=== PATIENT | male | born 1950 | race Caucasian/White ===

== ENCOUNTER → 2018-07-23 09:39 | Outpatient (CLI) | payer MEDICARE, OTHER, SELFPAY ==
[2018-07-24 14:16] LABS: Albumin 3.6 g/dL (2.9-4.4); Alpha-1-Globulin 0.2 g/dL (0.0-0.4); Alpha-2-Globulin 0.8 g/dL (0.4-1.0); Gamma Globulin 0.9 g/dL (0.4-1.8); Protein, Total 6.5 g/dL (6.0-8.5)
== END ==
PROVIDERS: PCP Family Medicine; Visit Provider Specialist
DX: G62.9 Polyneuropathy, unspecified (principal); M48.061 Spinal stenosis, lumbar region without neurogenic claudication; Z92.21 Personal history of antineoplastic chemotherapy
CPT/HCPCS: 36415; 84155; 84165

== ENCOUNTER → 2019-08-28 15:31 | Outpatient (CLI) | payer MEDICARE, OTHER, SELFPAY | PROVIDERS: Visit Provider Podiatrist | DX: B35.1 Tinea unguium (principal) | CPT/HCPCS: 87102; 87206; 87220 ==

== ENCOUNTER → 2019-10-25 08:54 | Outpatient (CLI) | payer MEDICARE, OTHER, SELFPAY ==
--- NOTE | 2019-10-25 08:57 | US_ITS ---
APPROVED REPORT Exam Type: Lower Extremity Segmental Pressures Environmental Advisor: Florencia Ocampo RVT Indications Claudication: Bilaterally Rest Pain: Bilaterally Numbness/Tingling SKIN CHANGES, NEUROPATHY IRENE LE'S Pressures/Indices Right Indices Left Indices Brachial 142.00 mmHg Brachial 148.00 mmHg Low Thigh 149.00 mmHg 1.01 Low Thigh 150.00 mmHg 1.01 Calf 178.00 mmHg 1.20 Calf 166.00 mmHg 1.12 Ankle(PT) 176.00 mmHg 1.19 Ankle(PT) 177.00 mmHg 1.20 Ankle(DP) 141.00 mmHg 0.95 Ankle(DP) 171.00 mmHg 1.16 Digit 117.00 mmHg 0.79 Digit 123.00 mmHg 0.83 Findings RT PATEL:1.19 LT PATEL:1.20 RT TBI:0.79 LT TBI:0.83 NORMAL PULSES IRENE. NORMAL WAVEFORMS IRENE Conclusion No evidence significant arterial disease throughout the right and left lower extremities as evidenced by normal resting PVR waveforms and normal resting indices. Electronically signed by : Gurpreet Tan MD 10/30/2019 18:40:15
== END ==
PROVIDERS: PCP Family Medicine; Visit Provider Podiatrist
DX: R09.89 Other specified symptoms and signs involving the circulatory and respiratory systems (principal)
CPT/HCPCS: 93923

== ENCOUNTER 2021-02-23 14:00 | Outpatient (RCR) | payer MEDICARE, OTHER, SELFPAY | END 2021-02-23 14:05 | disposition home or self-care (01) | LOC: PT 14:00 | PROVIDERS: PCP Family Medicine; Visit Provider Orthopaedic Surgery | DX: M17.11 Unilateral primary osteoarthritis, right knee (principal); Z47.89 Encounter for other orthopedic aftercare | CPT/HCPCS: 97010; 97014; 97016; 97110; 97140; 97163; 97164; 97530; G0283 ==

== ENCOUNTER → 2021-07-08 11:45 | Outpatient (CLI) | payer MEDICARE, OTHER, SELFPAY ==
--- NOTE | 2021-07-08 11:50 | XR_ITS ---
PROCEDURE: XR FOOT WT BEARING RT 3V CLINICAL INDICATION: Right foot pain, r/o stress fracure, osteophyte COMPARISON: No exams were available for comparison FINDINGS: No acute fractures evident. There is prominent cortical thickening involving the shaft of the 4th metatarsal which could be related underlying stress reaction. This is best detected on the oblique image. The joint spaces are well-preserved. No significant degenerative/arthritic changes. No erosive changes evident. Other findings:None. IMPRESSION: Cortical thickening of the 4th metatarsal which may be due to underlying stress reaction Dictated by: Gurpreet Tan MD 07/08/2021 15:33 Gurpreet Tan MD in [place] 07/08/2021 15:33
== END ==
PROVIDERS: PCP Family Medicine; Visit Provider Specialist
DX: G62.9 Polyneuropathy, unspecified (principal); G89.29 Other chronic pain; M79.671 Pain in right foot
CPT/HCPCS: 73630

== ENCOUNTER → 2021-07-15 07:57 | Outpatient (CLI) | payer MEDICARE, OTHER, SELFPAY ==
--- NOTE | 2021-07-15 07:57 | MR_ITS ---
PROCEDURE: MR FOOT RT WO CON CLINICAL INDICATION: right foot pain, severe COMPARISON: CR XR FOOT WT BEARING RT 3V from 07/08/2021 TECHNIQUE: Routine multiplanar multi echo sequences are performed without gadolinium enhancement. FINDINGS: Bones: No marrow edema. No acute fracture, dislocation, or bony destructive process. No evidence of stress fracture. Ligaments and tendons: There is a small amount fluid within the flexor hallucis longus tendon. No tendon tears. The ATFL, PT FL, tibiofibular ligaments, deltoid ligament, calcaneofibular ligament has an unremarkable appearance. Sinus tarsi has an unremarkable appearance. Plantar fascia appears intact. Small cystic areas present within the flexor hallucis brevis muscle measuring 8 mm along the plantar aspect of the 1st metatarsal distally. There is a small area of isointensity centrally within the cyst. IMPRESSION: 1. No evidence of stress fracture. 2. Tenosynovitis of the flexor digitorum longus tendon along the plantar aspect of the foot. 3. Small complex cystic lesion within the flexor hallucis brevis muscle. Dictated by: Gurpreet Tan MD 07/15/2021 16:59 Gurpreet Tan MD in [place] 07/15/2021 16:59
== END ==
PROVIDERS: PCP Family Medicine; Visit Provider Specialist
DX: G62.9 Polyneuropathy, unspecified (principal); G89.29 Other chronic pain; M79.671 Pain in right foot
CPT/HCPCS: 73718

== ENCOUNTER → 2021-07-22 09:30 | Outpatient (POV) | payer MEDICARE, OTHER, SELFPAY ==
[2021-07-22 09:52] VITALS: BP 177/81; PULSE 71; RESP 18; O2SAT 99; BMI 31.9
--- NOTE | 2021-07-22 12:31 | HMH.PMCON ---
Assessment and Plan (1) Idiopathic neuropathy Status: Chronic Category: Medical Code(s): G60.9 - Hereditary and idiopathic neuropathy, unspecified (2) Bilateral foot pain Status: Chronic Category: Medical Code(s): M79.671 - Pain in right foot; M79.672 - Pain in left foot - Assessment and plan all Dx Assessment and Plan for all problems:: Patient does have a history of herniated disks and has not had evaluation of his lumbar spine recently. His last MRI was prior to 2000. The patient is having foot pain with numbness and cold sensation. He has been told his pain may be directly related to his cancer treatment. He has also been told that it may be due to his lumbar spine. He is also having paresthesia into his bilateral thighs. He has tried to Loxitane which caused confusion. He is taking gabapentin. He was unable to tolerate an increased dose of gabapentin. We discussed trying Lyrica, however, the patient is very reluctant to change the medication. We have discussed undergoing an MRI of his lumbar spine to rule out any pathology with his spine. He will follow up with us after his MRI for reevaluation of symptoms. He has tried physical therapy and continues with home stretching. He would like to continue with his gabapentin. Patient has been instructed to contact the clinic with any concerns before the next appointment. Dr. Sierra has reviewed this note and agrees with this plan of care. This note was dictated using voice recognition software and make contain errors or omissions. HPI - Data of Consult Patient: new to practice Consult date: 07/22/21 Requesting Physician: Elizabet Hammond APRN Primary Care Provider: Referral Provider, MD - Consult Narrative Reason for consult: Bilateral foot pain, bilateral thigh numbness History of present illness: Mr. Phelps is a 71 year old male who presents today for consultation for foot pain and bilateral thigh numbness. Patient was referred to us by Dr. Bourne. Patient says he has had this pain for longer than 4 years. He was diagnosed with idiopathic neuropathy per Dr. Bourne. Patient was started on gabapentin 300 mg 1 tablet p.o. twice daily. Patient says that he is able to tolerate the medication at bedtime, however, is unable to tolerate the medication throughout the day. He has gotten some improvement with the medication. He was also started on Cymbalta which she reports to have caused him to become confused. Patient says his pain is much worse in the right foot in comparison to his left foot pain. He reports to be having pressure to the right foot with drawing of his toes. He has tried different types of shoes which did seem to help somewhat. He is not diabetic. Patient did have a right knee replacement in November 2020. At that time he was wearing compressive's stockings that were to the thigh area. He did wear these daily. He began to notice some numbness to his bilateral thigh area since then. He also has burning sensation into bilateral thighs. He is not having any back pain at this time, however, has reported in the past to have had herniated disks. When he received a neurosurgical consult at that time, he was told that he was too young to undergo surgical intervention. Patient does report to be having numbness and cold sensation to his bilateral feet. He does have a history of bladder cancer with 3 rounds of treatment in 2000. He was told that his neuropathy is most likely related to his cancer treatment which may have caused nerve damage. Patient says he has not had any recent imaging of his lumbar spine. Patient's tried physical therapy for greater than 6 weeks and continues with home stretching. He has been advised by physical therapy that his pain is likely contribute to his herniated disc from his back. CC: Elizabet Hammond APRN [facility] History I have reviewed the patient's past medical history: Yes Medical History: Reports:: Cancer, Hypertension *[place]
== END ==
PROVIDERS: Visit Provider Clinical Nurse Specialist Family Health
DX: G60.9 Hereditary and idiopathic neuropathy, unspecified (principal); M79.671 Pain in right foot; M79.672 Pain in left foot
CPT/HCPCS: 99202; G0463

== ENCOUNTER → 2021-07-28 16:34 | Outpatient (CLI) | payer MEDICARE, OTHER, SELFPAY ==
--- NOTE | 2021-07-28 | MR_ITS ---
PROCEDURE: MR LUMBAR SPINE WO CON CLINICAL INDICATION: BILATERAL FOOT PAIN COMPARISON: MR SENIOR ANALYTIC CONSULTANT/O MRI-L-SPINE W/O from 04/12/2013 MR SENIOR ANALYTIC CONSULTANT/O MRI-L-SPINE W/O from 07/10/2017 TECHNIQUE: Standard multiplanar multiecho sequences are performed without contrast. 3-D MIP and myelographic images are also rendered and reviewed FINDINGS: There is normal alignment. The spinal cord ends at the T12-L1 level. T11-T12 and T12-L1: Mild degenerative disc disease with minimal bulging disc and facet and ligamentum hypertrophy L1-L2: Degenerative disc disease with bulging disc and small central disc herniation with inferior extrusion causing mild impingement upon the anterior aspect of the cauda equina. There is facet and ligamentum hypertrophy with bilateral lateral recess narrowing. Small anterior osteophytes are present in there is a lipoma within the L1 vertebral body. The herniated disc has developed since the previous exam. There is canal stenosis. L2-L3: Degenerative disc disease with bulging disc and endplate osteophytes with facet and ligamentum hypertrophy with bilateral lateral recess narrowing not significantly changed. L3-L4: Degenerative disc disease with bulging disc with endplate osteophytes with facet and ligamentum hypertrophy with borderline canal stenosis bilateral lateral recess and bilateral foraminal narrowing. Not significantly changed L4-5: Mild concentric bulging disc with bilateral facet and ligamentum hypertrophy with mild bilateral foraminal narrowing overall not significantly changed there is narrowing of the canal at 11 mm. L5-S1: Degenerative disc disease with endplate osteophytes and bulging disc with small central disc protrusion the as well as a small broad-based left paracentral disc osteophyte complex. Facet and ligamentum hypertrophy is present with moderate to severe bilateral foraminal narrowing. The degenerative disc disease has progressed at this level compared to the previous exam. Bilateral pars defects are noted. Type 1 endplate changes There are bilateral parapelvic renal cysts IMPRESSION: Multilevel lumbar spondylosis with degenerative disc disease, bulging discs, facet ligamentum hypertrophy. Please see above for detailed description at each level. There is a small central disc herniation with inferior extrusion at L1-L2 which has developed since the previous exam. Dictated by: Gurpreet Tan MD 07/29/2021 13:30 Gurpreet Tan MD in [place] 07/29/2021 13:30
== END ==
PROVIDERS: PCP Family Medicine; Visit Provider Clinical Nurse Specialist Family Health
DX: M79.605 Pain in left leg (principal); M79.604 Pain in right leg; M79.672 Pain in left foot; M79.671 Pain in right foot
CPT/HCPCS: 72148; 76376

== ENCOUNTER → 2021-08-09 08:22 | Outpatient (POV) | payer MEDICARE, OTHER, SELFPAY ==
[2021-08-09 08:37] VITALS: BP 128/76; PULSE 77; RESP 18; O2SAT 98; BMI 31.9
--- NOTE | 2021-08-09 10:24 | HMH.PAINSOAP ---
[facility] Pain Management SOAP Note Subjective:: Patient is a pleasant 71-year-old white male who presents today for MRI follow-up. He has been treated for bilateral foot pain which is worse to the right foot. He also has bilateral thigh numbness and tingling. Patient has been on gabapentin prescribed by Dr. Bourne. He says that it was prescribed as 300 mg 1 tablet p.o. twice daily. He is only taking the medication at bedtime, however. Patient says it is causing him to have difficulty sleeping. This will he does rate his pain a 4-5 out of 10 at this time the he is also managed with celecoxib 200 mg 1 tablet p.o. daily. Patient has had an EMG and was told that he does likely have neuropathy. He would like to review his MRI today. Review of Systems General: No recent weight changes, no fever, no sleep disturbances Respiratory: No cough, no shortness of air, no recurring pulmonary infections Cardiovascular/peripheral vascular: No chest pain, no palpitations, no edema, no shortness of breath Gastrointestinal: No new onset incontinence, normal bowel movements reported Genitourinary: No new onset incontinence Musculoskeletal: Bilateral foot pain?worse to right foot, bilateral thigh numbness and tingling Psychiatric: [Normal mood/affect] Neurological: [Denies weakness in extremities], [denies balance issues] Objective:: Physical exam General: Alert and oriented x3, no acute distress, pleasant and cooperative, [on room air] Lungs: Respirations even and unlabored, symmetrical chest expansion Eyes: PERRL Musculoskeletal: Flexion and extension of bilateral lower extremities somewhat guarded secondary to pain, strength in upper and lower extremities [5/5], [antalgic gait noted] Neurological: Speech clear, [director of creative services equal], no gross sensory deficit Assessment:: Degenerative disc disease lumbar spine with lumbar radiculopathy symptoms, herniated disc Plan:: Patient I did review his MRI. He does have a small herniated disc. Patient has deferred on a referral to neurology. Per the patient's MRI, There is a small central disc herniation with inferior extrusion at L1-L2 which has developed since the previous exam . Patient's MRI did note him to also have degenerative disc disease with bulging disks and facet hypertrophy. At this time, the patient would like to defer on any treatment. We did discuss changing his gabapentin to Lyrica 75 mg 1 tablet p.o. twice daily. He would like to consider this for the future. He is planning to leave for vacation and does not want to change any medications or do any further interventional therapies until he returns from vacation. He and I also discussed possible injective therapy to the area. He has also deferred on this. Patient is unsure that he wants a neurosurgical evaluation as well. He says his pain is tolerable at the moment. He will contact us if the pain does worsen, however. Patient has been instructed to contact the clinic with any concerns before the next appointment. Dr. Sierra has reviewed this note and agrees with this plan of care. This note was dictated using voice recognition software and make contain errors or omissions. [facility] History I have reviewed the patient's past medical history: Yes Medical History: Reports:: Cancer, Hypertension *Have you ever received a pneumonia vaccine?: Yes *Have you received a flu vaccine this season?: No Other Medical History: Reports: Arthritis, Other Other Surgeries: Yes: Cancer Surgery, Other Amputation: No Fractures: No - *Social History Smoking Status: Never smoker Alcohol Intake: current Alcohol Intake Frequency:: holidays/special occasions only Substance Use Type: denies use *Occupational Status:: unemployed Housing: house Household Members: spouse *Travel in the last 8 weeks: None Family Hx:: Asthma, Coronary Artery Disease
== END ==
PROVIDERS: Visit Provider Clinical Nurse Specialist Family Health
DX: M51.16 Intervertebral disc disorders with radiculopathy, lumbar region (principal); M51.26 Other intervertebral disc displacement, lumbar region
CPT/HCPCS: 99212; G0463

== ENCOUNTER → 2021-11-24 14:51 | Outpatient (CLI) | payer MEDICARE, OTHER, SELFPAY ==
[2021-11-24 16:04] LABS: Alanine Aminotransferase 17 U/L (12-78); Albumin Level 4.2 g/dl (3.5-5.0); Albumin/Globulin Ratio 1.7 (1.1-1.8); Alkaline Phosphatase 84 U/L (38-126); Anion Gap 11.4 mEq/L (5-15); Aspartate Amino Transferase 26 U/L (17-59); Bilirubin,Total 0.3 mg/dl (0.2-1.3); Blood Urea Nitrogen 27 mg/dl (9-20); Calcium 9.5 mg/dl (8.4-10.2); Carbon Dioxide 29 mmol/L (22.0-30.0); Chloride 100 mmol/L (98-107); Estimated Glomerular Filt Rate 55 ml/min (>60); GFR (African American) 66 ML/MIN (>60); Globulin 2.5 g/dL (1.3-3.2); Glucose 94 mg/dl (74-100); Potassium 4.4 mmoL/L (3.5-5.1); Sodium 136 mmol/L (136-145); Total Protein,Serum 6.7 g/dl (6.3-8.2)
== END ==
PROVIDERS: Visit Provider Nurse Practitioner Family
DX: G62.9 Polyneuropathy, unspecified (principal); G89.29 Other chronic pain; M79.671 Pain in right foot
CPT/HCPCS: 36415; 80053

== ENCOUNTER → 2021-11-30 11:12 | Outpatient (POV) | payer MEDICARE, OTHER, SELFPAY | PROVIDERS: Visit Provider Dermatology | DX: Z00.00 Encounter for general adult medical examination without abnormal findings (principal) ==

== ENCOUNTER → 2021-12-07 07:24 | Outpatient (CLI) | payer MEDICARE, OTHER, SELFPAY ==
[2021-12-07 09:13] LABS: Chloride 101 mmol/L (98-107); Potassium 5.4 mmoL/L (3.5-5.1); Sodium 138 mmol/L (136-145)
[2021-12-07 09:16] LABS: Blood Urea Nitrogen 26 mg/dl (9-20); Estimated Glomerular Filt Rate 55 ml/min (>60); GFR (African American) 66 ML/MIN (>60)
[2021-12-07 09:17] LABS: Anion Gap 10.4 mEq/L (5-15); Calcium 9.5 mg/dl (8.4-10.2); Carbon Dioxide 32 mmol/L (22.0-30.0); Glucose 90 mg/dl (74-100)
== END ==
PROVIDERS: Visit Provider Nurse Practitioner Family
DX: N28.9 Disorder of kidney and ureter, unspecified (principal)
CPT/HCPCS: 36415; 80048

== ENCOUNTER → 2022-01-13 11:40 | Outpatient (CLI) | payer MEDICARE, OTHER, SELFPAY ==
[2022-01-13 13:13] LABS: Anion Gap 11.1 mEq/L (5-15); Blood Urea Nitrogen 37 mg/dl (9-20); Calcium 9.3 mg/dl (8.4-10.2); Carbon Dioxide 27 mmol/L (22.0-30.0); Chloride 105 mmol/L (98-107); Estimated Glomerular Filt Rate 46 ml/min (>60); GFR (African American) 56 ML/MIN (>60); Glucose 97 mg/dl (74-100); Potassium 5.1 mmoL/L (3.5-5.1); Sodium 138 mmol/L (136-145)
== END ==
PROVIDERS: Visit Provider Nurse Practitioner Family
DX: G60.9 Hereditary and idiopathic neuropathy, unspecified (principal)
CPT/HCPCS: 36415; 80048

== ENCOUNTER 2022-11-30 14:00 | Outpatient (RCR) | payer MEDICARE, OTHER, SELFPAY | END 2022-11-30 14:05 | disposition home or self-care (01) | LOC: PT 14:00 | PROVIDERS: PCP Family Medicine; Visit Provider Orthopaedic Surgery | DX: M25.562 Pain in left knee (principal); Z96.652 Presence of left artificial knee joint | CPT/HCPCS: 97010; 97014; 97110; 97140; 97163; 97164; G0283 ==

== ENCOUNTER → 2023-01-31 09:45 | Outpatient (CLI) | payer MEDICARE, OTHER, SELFPAY | PROVIDERS: PCP Family Medicine; Visit Provider Nurse Practitioner Family | DX: G47.33 Obstructive sleep apnea (adult) (pediatric) (principal); R06.83 Snoring; G47.19 Other hypersomnia; I10 Essential (primary) hypertension; R63.5 Abnormal weight gain; N52.9 Male erectile dysfunction, unspecified | CPT/HCPCS: G0399 ==

== ENCOUNTER → 2023-03-03 14:31 | Outpatient (POV) | payer MEDICARE, OTHER, SELFPAY | PROVIDERS: Visit Provider Dermatology | DX: Z00.00 Encounter for general adult medical examination without abnormal findings (principal) ==

== ENCOUNTER → 2023-03-07 09:03 | Outpatient (CLI) | payer MEDICARE, OTHER, SELFPAY | PROVIDERS: PCP Family Medicine; Visit Provider Nurse Practitioner | DX: I10 Essential (primary) hypertension (principal); I49.9 Cardiac arrhythmia, unspecified; R94.31 Abnormal electrocardiogram [ECG] [EKG]; R00.2 Palpitations | CPT/HCPCS: 93270 ==

== ENCOUNTER → 2023-03-13 08:28 | Outpatient (CLI) | payer MEDICARE, OTHER, SELFPAY | PROVIDERS: PCP Family Medicine; Visit Provider Physician Assistant | DX: I10 Essential (primary) hypertension (principal); I49.9 Cardiac arrhythmia, unspecified; R94.31 Abnormal electrocardiogram [ECG] [EKG] | CPT/HCPCS: 93306 ==